=== PATIENT | female | born 1975 | race Caucasian/White ===

== ENCOUNTER → 2022-03-04 10:38 | Outpatient (BNVA) | payer OTHER, SELFPAY | PROVIDERS: PCP Family Medicine; Visit Provider Family Medicine | DX: E78.5 Hyperlipidemia, unspecified (principal); E11.9 Type 2 diabetes mellitus without complications; E03.9 Hypothyroidism, unspecified; I10 Essential (primary) hypertension; F32.9 Major depressive disorder, single episode, unspecified; R10.9 Unspecified abdominal pain; R13.10 Dysphagia, unspecified | CPT/HCPCS: 80053; 83690 ==

== ENCOUNTER 2022-03-05 10:30 | Outpatient (CLI) | payer OTHER, SELFPAY ==
--- NOTE | 2022-03-05 10:30 | CT_ITS ---
WS: [id number] CT ABDOMEN PELVIS TECHNIQUE: Contrast-enhanced CT of the abdomen and pelvis with coronal and sagittal reformatted image s. CLINICAL INFORMATION: abd pain left COMPARISON: None. DLP: 1365.[address] scans at [facility] use at least one of these dose optimization techniques: automated e xposure control; mA and/or kV adjustment per patient size (includes targeted exams where dose is matc hed to clinical indication); or iterative reconstruction. FINDINGS: Lung bases are well aerated. A few Subcentimeter noncalcified pulmonary nodules in the RIGHT middle l obe and both lung bases. The largest measuring 4 mm. Mild hepatomegaly. Enlargement of the RIGHT hepatic lobe. Mild diffuse fatty infiltration liver. Norm al spleen. Normal portal vein and splenic vein. Normal GE junction. Normal gallbladder. Pancreas appe ars normal. Adrenal glands are normal. Normal renal parenchymal enhancement. No hydronephrosis. Sigmoid diverticulosis. No evidence of acute diverticulitis. Normal appendix in the RIGHT lower quadr ant. Tiny fat containing umbilical hernia. Normal lumbar spine. Sclerosis about the RIGHT greater pepe n LEFT SI joints likely degenerative. CT/CT abdomen pelvis w con* [id number] IMPRESSION: 1. A few noncalcified subcentimeter nodules in the lung bases. Recommend 12 mo nth follow-up chest CT. 2. Sigmoid diverticulosis. No evidence of acute diverticulitis. 3. No evidence of high-grade small or large bowel obstruction. Normal appendix in the RIGHT lower quadrant. No evidence of acute appendicitis. 4. Mild hepatomegaly. 5. No other suspicious findings.
[2022-03-05] MEDS: iohexol 350 mg/mL 100 mL Btl IV (11:04)
== END 2022-03-05 10:31 | disposition home or self-care (01) ==
LOC: RAD 10:31
PROVIDERS: PCP Family Medicine; Visit Provider Family Medicine
DX: R10.9 Unspecified abdominal pain (principal); R91.8 Other nonspecific abnormal finding of lung field; K57.30 Diverticulosis of large intestine without perforation or abscess without bleeding; R16.0 Hepatomegaly, not elsewhere classified
CPT/HCPCS: 74177

== ENCOUNTER 2022-04-03 07:40 | Day surgery (SDC) | payer OTHER, SELFPAY ==
[2022-04-01 12:12] VITALS: BMI 41.3
[2022-04-03 08:04] VITALS: BP 138/95; PULSE 100; RESP 18; TEMP 36.5; O2SAT 96
--- NOTE | 2022-04-03 08:10 | P.ANESASSM_ITS ---
Pre-Anesthetic Assessment Height/Weight: Height 1.7 m Weight 119.748 kg Temp Pulse Resp BP Pulse Ox O2 Del Method 97.7 F 100 18 138/95 96 04/03/22 08:04 04/03/22 08:04 04/03/22 08:04 04/03/22 08:04 04/03/22 08:04 04/03/22 08:04 Operation Date: 04/03/22 09:00 Proposed Procedures p EGD Dilation W/ Balloon [id number],R13.10(Not Applicable) - Jayson Christianson DO Familial anesthetic complications: None Was Beta Eber taken within 24 hours: N/A Was Clonidine taken within 24 hours: N/A Last intake: Intake Last Liquid Date 04/02/22 Last Liquid Time 20:00 Last Solid Date 04/02/22 Last Solid Time 20:00 Social No alcohol and No tobacco Exam alert, oriented x 3, clear to auscultation bilaterally and regular rate & rhythm Airway Mallampati: Class III Dentition: full CV/HEM Hypertension Metabolic Diabetes Mellitus, Hyperlipidemia, Morbid Obesity and Thyroid Disease Anesthetic Plan ASA status: 3 Anesthesia: MAC Risk of > 500 ml blood loss (7ml/kg in children): No Medications/Allergies Home Medications Medication Instructions Recorded Confirmed Last Taken Type cetirizine 10 mg tablet (Zyrtec) 10 mg PO DAILY PRN allergies 03/04/22 04/01/22 Unknown History desvenlafaxine succinate 50 mg 50 mg PO DAILY #90 tabs 03/04/22 04/01/22 Unknown Rx tablet,extended release 24 hr diphenhydramine HCl 25 mg capsule 25 mg PO TID PRN Allergy Symptoms 03/04/22 04/01/22 Unknown History (Benadryl) dulaglutide 1.5 mg/0.5 mL 1.5 mg (0.5 mL) SUBCUT .weekly 90 03/04/22 04/01/22 Unknown Rx subcutaneous pen injector days #6 mL (Trulicity) glipizide 10 mg tablet, extended 10 mg PO DAILY #90 tabs 03/04/22 04/01/22 Unknown Rx release 24 hr levothyroxine 175 mcg tablet 175 mcg PO DAILY #90 tabs 03/04/22 04/01/22 Unknown Rx losartan 50 mg tablet 50 mg PO DAILY #90 tabs 03/04/22 04/01/22 Unknown Rx mecobalamin (vitamin B12) 1,000 1,000 mcg PO DAILY 03/04/22 04/01/22 Unknown H istory mcg chewable tablet (B12 Active) metformin 1,000 mg tablet,extended 1,000 mg PO DAILY #90 tabs 03/04/22 04/01/22 Unknown Rx release 24hr rosuvastatin 40 mg tablet 40 mg PO DAILY #90 tabs 03/04/22 04/01/22 Unknown Rx Allergies Allergy/AdvReac Type Severity Reaction Status Date / Time codeine AdvReac Mild ADR-Vomitin Verified 04/03/22 08:09 g levofloxacin [From Levaquin] AdvReac Mild ADR-Vomitin Verified 04/03/22 08:09 g PFSH Anesthesia Medical History Benign essential HTN Dyslipidemia Hypothyroidism (acquired) Major depression Type 2 diabetes mellitus, without long-term current use of insulin Surgical History History of esophagogastroduodenoscopy (EGD) 2017 Hx of colonoscopy 2017 No pertinent past surgical history Family History Other CAD (coronary artery disease) Cancer Family history of premature coronary artery disease Hyperlipidemia Hypertension Stroke Denies family history of Diabetes Clotting disorder Dementia Psychiatric illness Chronic kidney disease (CKD) Suicide Anesthesia complication Bleeding disorder Lung disease Social History Smoking and tobacco status: never smoked Alcohol intake: never Adopted: No Caregiver/support person: Yes Lives independently: Yes Household members: spouse and children Marital status: Number of children: 2 Data Anesthesia Cardiac Studies: No Data to Display
[2022-04-03 08:35] LABS: Glucose Point of Care 241 mg/dL (70-110)
[2022-04-03] MEDS: ondansetron 2 mg/ML SDV 2 mL 4 MG IVP (08:39)
[2022-04-03] MEDS: sodium chloride 0.9% 1,000 ML 30 ML IV (08:39)
[2022-04-03 08:48] LABS: OR HCG Qualitative Urine Negative (Negative)
--- NOTE | 2022-04-03 09:47 | W.PM.OPSUD ---
Surgery/Procedure H&P Update DATE OF PROCEDURE: April 03, 2022 DATE H&P PERFORMED: 03/12/22 PLANNED PROCEDURE: Operation Date: 04/03/22 09:00 Proposed Procedures p EGD Dilation W/ Balloon [id number],R13.10(Not Applicable) - Jayson Christianson DO
[2022-04-03 10:22] VITALS: BP 146/87; PULSE 100; RESP 18; TEMP 36.1; O2SAT 100
[2022-04-03 10:31] VITALS: BP 135/84; PULSE 103; RESP 18; O2SAT 99
--- NOTE | 2022-04-03 14:55 | ANE.PACU2 ---
Inpatient post-anesthesia follow up: Airway intact: Yes Vital signs: Temperature 97.0 F Pulse Rate 103 Respiratory Rate 18 Blood Pressure 135/84 Pulse Oximetry 99 Oxygen Delivery Me thod Room Air Oxygen Flow Rate Fraction of Inspir ed Oxygen Hydration adequate: Yes Nausea and vomiting: No Pain level: 1 Mental status: Baseline
== END 2022-04-03 10:51 | disposition home or self-care (01) ==
PROVIDERS: Anesthesiology; PCP Family Medicine; Visit Provider Surgery
DX: R13.10 Dysphagia, unspecified (principal); K29.50 Unspecified chronic gastritis without bleeding; K21.00 Gastro-esophageal reflux disease with esophagitis, without bleeding; I10 Essential (primary) hypertension; E11.9 Type 2 diabetes mellitus without complications; E78.5 Hyperlipidemia, unspecified; E66.01 Morbid (severe) obesity due to excess calories; Z68.41 Body mass index [BMI] 40.0-44.9, adult; Z79.84 Long term (current) use of oral hypoglycemic drugs; E03.9 Hypothyroidism, unspecified
CPT/HCPCS: 36416; 43239; 81025; 82962; 84703; 88305; 88342; 96374; J2405; J2704; J7030

== ENCOUNTER → 2022-07-22 09:21 | Outpatient (BNVA) | payer OTHER, SELFPAY | PROVIDERS: PCP Family Medicine; Visit Provider Family Medicine | DX: E03.9 Hypothyroidism, unspecified (principal); E11.9 Type 2 diabetes mellitus without complications; I10 Essential (primary) hypertension; D50.9 Iron deficiency anemia, unspecified; F32.9 Major depressive disorder, single episode, unspecified | CPT/HCPCS: 80053; 82728; 83036; 83550; 84439; 84443; 85025 ==

== ENCOUNTER → 2022-11-25 10:29 | Outpatient (BNVA) | payer OTHER, SELFPAY | PROVIDERS: PCP Family Medicine; Visit Provider Family Medicine | DX: E11.9 Type 2 diabetes mellitus without complications (principal); E78.5 Hyperlipidemia, unspecified | CPT/HCPCS: 80053; 83036 ==

== ENCOUNTER → 2023-02-17 15:09 | Outpatient (BNVA) | payer OTHER, SELFPAY | PROVIDERS: PCP Family Medicine; Visit Provider Family Medicine | DX: E11.9 Type 2 diabetes mellitus without complications (principal); E03.9 Hypothyroidism, unspecified; D50.9 Iron deficiency anemia, unspecified; D50.8 Other iron deficiency anemias; E53.8 Deficiency of other specified B group vitamins | CPT/HCPCS: 80053; 82607; 82728; 83036; 83550; 84439; 84443; 85025 ==

== ENCOUNTER 2023-03-18 08:19 | Outpatient (CLI) | payer OTHER, SELFPAY ==
--- NOTE | 2023-03-18 08:30 | CT_ITS ---
WS: [id number] CT CHEST TECHNIQUE: Contrast enhanced CT of the chest with coronal and sagittal reformatted images. CLINICAL INFORMATION: right lung nodules COMPARISON: CT abdomen pelvis 03/05/2022 DLP: 640.[address] scans at [facility] use at least one of these dose optimization techniques: automated e xposure control; mA and/or kV adjustment per patient size (includes targeted exams where dose is matc hed to clinical indication); or iterative reconstruction. FINDINGS: Lungs are well aerated. No acute pulmonary infiltrates. A few tiny subcentimeter nodules in the lung bases unchanged since the recent CT abdomen/pelvis. Largest nodules measure 4 to 5 mm. Smal l calcified granuloma RIGHT upper lobe. 5 mm nodule in the RIGHT hilum. Few scattered subcentimeter n odules in the upper lobes. Normal caliber thoracic aorta. No mediastinal or hilar lymphadenopathy. Calcified RIGHT hilar lymph n odes. No axillary lymphadenopathy. Adrenal glands are normal. Mild hepatomegaly. Mild splenomegaly. T his is partially visualized. Celiac and SMA are patent in the upper abdomen. Normal GE junction. IMPRESSION: 1. Scattered bilateral subcentimeter nodules the largest measuring 5 mm in the LEFT lower lobe and R IGHT hilum. Recommend 12-month follow-up. 2. No mediastinal or hilar lymphadenopathy. 3. No other acute findings.
[2023-03-18] MEDS: iohexol 350 mg/mL 500 mL Btl (per mL) IV (08:37)
== END 2023-03-18 08:20 | disposition home or self-care (01) ==
LOC: RAD 08:20
PROVIDERS: PCP Family Medicine; Visit Provider Family Medicine
DX: R91.1 Solitary pulmonary nodule (principal)
CPT/HCPCS: 71260; Q9967

== ENCOUNTER → 2023-06-02 11:26 | Outpatient (BNVA) | payer OTHER, SELFPAY | PROVIDERS: PCP Family Medicine; Visit Provider Family Medicine | DX: E11.9 Type 2 diabetes mellitus without complications (principal); E78.5 Hyperlipidemia, unspecified | CPT/HCPCS: 80053; 80061; 83036 ==